=== PATIENT | male | born 1970 | race Caucasian/White ===

== ENCOUNTER 2016-05-03 13:18 | Emergency (ER) | payer SELFPAY ==
[2016-05-03 13:32] VITALS: BP 139/96; BMI 24.4
--- NOTE | 2016-05-03 14:06 | DR.GENAD ---
HPI - PCP Primary Care Physician: nfd - HPI Comment HPI Comment: SLIGHT CONGEST AND LOW GRADE FEVER. GETTING WORSE. SIDE PAIN GOES INTO ABDOMEN. NAUSEA PRESENT. - Complaint/Symptoms Chief Complaint Doctors Comments: SOD, RIGHT SIDE PAIN FOR SEVERA DAYS Chief Complaint:: patient stated he has been out of his inhaler for about 2 weeks and has been short of breath and right side pain - Nurses notes reviewed Nurses Notes Review: Yes - Source History Provided: Patient - Mode of Arrival Mode of Arrival: Ambulatory - Timing Onset of Chief Complaint: 04/19/16 Came on: Suddenly - Duration Duration: Constant Duration: Days - Severity Severity: Moderate PMH - PMH Past Medical History: Yes Past Medical History: Anxiety, Arthritis, Asthma, COPD, CVA, Depression, Dyslipidemia, Hypertension, Schizophrenia Past Surgical History: Yes Surgical History: Ortho Surgery - Family History History of Family Medical Conditions: Yes Family Medical History: Diabetes Mellitus, Cancer, Heart Failure, Hypertension - Social History Does patient currently use any type of tobacco product: Yes Have you used tobacco products in the last 12 months: Yes Type of Tobacco Use: Cigarettes How many years tobacco product used: 30 Does any household member use tobacco: No Alcohol Use: None Do you use any recreational Drugs:: No Lives With: Family Lives Where: Home - infectious screening In the last 2 months have you had wt loss of >10#?: NO Have you had fever, night sweats or hemotysis?: No Have you traveled outside the country in the last 6 months?: No Isolation: Standard ROS - Review of Systems Constitutional: Fever (LOW GRADE), Weakness Eyes: No Symptoms Reported ENTM: Nose Congestion. negative: Ear Pain, Nose Discharge, Throat Pain Respiratoy: Productive Cough. negative: Short of Breath, Wheezing, Hemoptysis Cardiovascular: No Symptoms Reported Gastrointestinal/Abdominal: Abdominal Pain, Nausea, Vomiting Genitourinary: No Symptoms Reported Neurological: Weakness Musculoskeletal: Muscle Pain Integumentary: No Symptoms Reported Hematologic/Lymphatic: No Symptoms Reported Endocrine: No Symptoms Reported All Other Systems: Reviewed and Negative PE - Vital Signs Vitals: Temperature 99.6 F Pulse Rate 97 Respiratory Rate 18 Blood Pressure 139/96 O2 Sat by Pulse Oximetry 100 - General Limitations: No Limitations General Appearance: Alert - Head Head Exam: Normal Inspection - Eyes Eye exam: Normal Appearance - ENT ENT Exam: Normal External Ear Exam External Ear Exam: Normal External Inspection TM/Canal Exam: Bilateral Normal Nose Exam: Normal Nose Exam Mouth Exam: Normal Inspection Throat Exam: Normal Inspection - Neck Neck Exam: Trachea Midline - Chest Chest Inspection: Symmetric Chest Wall Rise - Respiratory Respiratory Exam: Normal Lung Sounds Bilat Respiratory Exam: Bilateral Clear to Auscultation - Cardiovascular Cardiovascular Exam: Regular Rate, Normal Rhythm, Normal Heart Sounds - Abdominal Exam Abdominal Exam: Normal Bowel Sounds, Soft, Tenderness Abdominal Tenderness: Diffuse, Moderate - Extremities Extremities Exam: Normal Inspection - Back Back Exam: Normal Inspection - Neurologic Neurological Exam: Alert, Oriented X3 - Psychiatric Psychiatric Exam: Anxious - Skin Skin Exam: Normal Color MDM - Differential Diagnosis Differential Diagnosis: ABDOMINAL PAIN, PNEUMONIA, DEHYDRATION, UTI Course - Treatment Treatment: SEE REPORT. - Education/Counseling Education/Counseling: Patient, Education Educated On: Diagnosis, Needs for Follow Up ROR - Labs Reviewed Laboratory Results Reviewed?: Yes Result Diagrams: 05/03/16 14:10 05/03/16 14:10 Laboratory: WBC 9.2 X10^3/uL (3.6-10.0) 05/03/16 14:10 RBC 4.33 X10^6/uL (4.7-6.0) L 05/03/16 14:10 Hgb 12.8 g/dL (13.5-18.0) L 05/03/16 14:10 Hct 38.1 % (42.0-54.0) L 05/03/16 14:10 MCV 88.0 fL (80.0-100.0) 05/03/16 14:10 MCH 29.5 pg (27.0-34.0) 05/03/16 14:10 MCHC 33.6 g/dL (33.0-35.0) 05/03/16 14:10 RDW 16.5 % (11.6-16.5) 05/03/16 14:10 Plt Count 419 X10^3/uL (150.0-450.0) 05/03/16 14:10 MPV 6.9 fL (7.4-11.0) L 05/03/16 14:10 Neut % 70.7 % (42.0-75.0) 05/03/16 14:10 Lymph % 20.2 % (21.0-51.0) L 05/03/16 14:10 [place] % 6.8 % (0.0-13.0) 05/03/16 14:10 Eos % 1.2 % (0.9-2.9) 05/03/16 14:10 Baso % 1.1 % (0.2-1.0) H 05/03/16 14:10 Neut # 6.5 x10^3/uL (2.2-4.8) H 05/03/16 14:10 Lymph # 1.9 X10^3/uL (1.3-2.9) 05/03/16 14:10 [place] # 0.6 x10^3/uL (0.3-0.8) 05/03/16 14:10 Eos # 0.1 x10^3/uL (0.0-0.2) 05/03/16 14:10 Baso # 0.1 X10^3/uL (0.0-0.1) 05/03/16 14:10 Absolute Nucleated RBC 0.0 /100WBC 05/03/16 14:10 Sodium 138 mmol/L (136-145) 05/03/16 14:10 Corrected Sodium TNP 05/03/16 14:10 Potassium 3.5 mmol/L (3.5-5.1) 05/03/16 14:10 Chloride 100 mmol/L (98-107) 05/03/16 14:10 Carbon Dioxide 28.9 mmol/L (21-32) 05/03/16 14:10 BUN 12 mg/dL (7-18) 05/03/16 14:10 Creatinine 1.00 mg/dL (0.70-1.30) 05/03/16 14:10 Est GFR (MDRD) Af Amer > 60 (>60) 05/03/16 14:10 Est GFR (MDRD) Non-Af > 60 (>60) 05/03/16 14:10 Glucose 85 mg/dL (65-99) 05/03/16 14:10 Calcium 8.5 mg/dL (8.5-10.1) 05/03/16 14:10 Corrected Calcium TNP 05/03/16 14:10 Total Bilirubin 0.20 mg/dL (0.2-1.0) 05/03/16 14:10 AST 17 Units/L (15-37) 05/03/16 14:10 ALT 19 Units/L (12-78) 05/03/16 14:10 Alkaline Phosphatase 94 Units/L (46-116) 05/03/16 14:10 Total Protein 7.9 g/dL (6.4-8.2) 05/03/16 14:10 Albumin 4.1 g/dL (3.4-5.0) 05/03/16 14:10 Globulin 3.8 g/dL (2.5-4.5) 05/03/16 14:10 Albumin/Globulin Ratio 1.1 Ratio (1.1-2.1) 05/03/16 14:10 Amylase 43 Units/L (25-115) 05/03/16 14:10 Lipase 94 Units/L (73-393) 05/03/16 14:10 Specimen Type Clean catch urine 05/03/16 15:18 Urine Color Dark yellow (YELLOW) 05/03/16 15:18 Urine Appearance Clear (CLEAR) 05/03/16 15:18 Urine pH 6.5 (5.0 - 8.0) 05/03/16 15:18 Ur Specific [place] 1.015 (1.000-1.030) 05/03/16 15:18 Urine Protein 2+ (NEGATIVE) 05/03/16 15:18 Urine Glucose (UA) Negative (NEGATIVE) 05/03/16 15:18 Urine Ketones Negative (NEGATIVE) 05/03/16 15:18 Urine Occult Blood 2+ (NEGATIVE) 05/03/16 15:18 Urine Nitrite Negative (NEGATIVE) 05/03/16 15:18 Urine Bilirubin Negative (NEGATIVE) 05/03/16 15:18 Urine Urobilinogen 1+ (NORMAL) 05/03/16 15:18 Ur Leukocyte Esterase Negative (NEGATIVE) 05/03/16 15:18 Urine RBC 2-4 /HPF (NEGATIVE) 05/03/16 15:18 Urine WBC 0-4 /HPF (NEGATIVE) 05/03/16 15:18 Ur Squamous Epith Cells Rare /HPF (NEGATIVE) 05/03/16 15:18 Amorphous Sediment Trace /HPF (NEGATIVE) 05/03/16 15:18 Urine Bacteria Trace /HPF (NEGATIVE) 05/03/16 15:18 Ur Culture Indicated? No/not indicated 05/03/16 15:18 - XRAY XRAY Interpreted by: Radiologist XRAY Findings: REPORT DISCUSS WITH PATIENT. - Diagnosis Discharge Problem: Abdominal pain - Discharge Plan Disposition: 01 HOME, SELF-CARE Condition: Stable Prescriptions: Acetaminophen W/ Codeine [Tylenol/Codeine #3 300-30 mg] 1 tab PO Q6H PRN #15 tab PRN Reason: Pain Cyclobenzaprine HCl [FLEXERIL 10 MG *] 10 mg PO TID #15 tab Ibuprofen [MOTRIN TAB 600 MG *] 600 mg PO TID PRN #20 tab PRN Reason: Pain/Inflammation - Follow ups/Referrals Follow ups/Referrals: CARA SOLARES [STAFF PHYSICIAN] - 2 days NFD,None [Primary Care Provider] - 2 days - Instructions Instructions: Abdominal Pain, Adult, [id number] Additional Instructions: RETURN TO ED IF WORSE.
[2016-05-03 14:23] LABS: BASOPHILS # (AUTO) 0.1 X10^3/uL (0.0-0.1); BASOPHILS % (AUTO) 1.1 % (0.2-1.0); EOSINOPHILS # (AUTO) 0.1 x10^3/uL (0.0-0.2); EOSINOPHILS % (AUTO) 1.2 % (0.9-2.9); HEMATOCRIT 38.1 % (42.0-54.0); HEMOGLOBIN 12.8 g/dL (13.5-18.0); LYMPHOCYTES # (AUTO) 1.9 X10^3/uL (1.3-2.9); LYMPHOCYTES % (AUTO) 20.2 % (21.0-51.0); MEAN CORPUSCULAR HEMOGLOBIN 29.5 pg (27.0-34.0); MEAN CORPUSCULAR HGB CONC 33.6 g/dL (33.0-35.0); MEAN PLATELET VOLUME 6.9 fL (7.4-11.0); MONOCYTES # (AUTO) 0.6 x10^3/uL (0.3-0.8); MONOCYTES % (AUTO) 6.8 % (0.0-13.0); NEUTROPHILS # (AUTO) 6.5 x10^3/uL (2.2-4.8); NEUTROPHILS % (AUTO) 70.7 % (42.0-75.0); PLATELET COUNT 419 X10^3/uL (150.0-450.0); RED BLOOD COUNT 4.33 X10^6/uL (4.7-6.0); RED CELL DISTRIBUTION WIDTH 16.5 % (11.6-16.5); WHITE BLOOD COUNT 9.2 X10^3/uL (3.6-10.0)
[2016-05-03] MEDS ORDERED: TORADOL 60 MG VIAL ONE (14:23)
[2016-05-03] MEDS: TORADOL 60 MG VIAL IM ONE (14:30)
[2016-05-03 14:32] LABS: ALANINE AMINOTRANSFERASE 19 Units/L (12-78); ALBUMIN 4.1 g/dL (3.4-5.0); ALKALINE PHOSPHATASE 94 Units/L (46-116); AMYLASE 43 Units/L (25-115); ASPARTATE AMINO TRANSFERASE 17 Units/L (15-37); BLOOD UREA NITROGEN 12 mg/dL (7-18); CALCIUM 8.5 mg/dL (8.5-10.1); CARBON DIOXIDE 28.9 mmol/L (21-32); CHLORIDE 100 mmol/L (98-107); GLUCOSE 85 mg/dL (65-99); LIPASE 94 Units/L (73-393); SODIUM 138 mmol/L (136-145); TOTAL PROTEIN 7.9 g/dL (6.4-8.2); eGFR BLACK RACES > 60 (>60); eGFR NON BLACK RACES > 60 (>60)
--- NOTE | 2016-05-03 15:06 | RAD ---
HISTORY: Right upper quadrant pain Study: Acute abdominal series Comparison: December 09, 2015 Findings: The trachea is midline. The cardiac silhouette is unremarkable. The lungs are clear without focal infiltrate or effusion. The bony thorax is unremarkable. Flat plate and upright evaluation of the abdomen demonstrates a normal bowel gas pattern no pneumope ritoneum is identified.. No pathological soft tissue mass or calcification can be observed. The [place] structures are grossly intact. IMPRESSION: 1. No acute cardiopulmonary disease. 2. No evidence for acute abdominal pathology identified. Reported By:
[2016-05-03 15:47] LABS: BILIRUBIN,URINE NEGATIVE (NEGATIVE); BLOOD/HEMOGLOBIN,URINE 2+ (NEGATIVE); GLUCOSE, URINE NEGATIVE (NEGATIVE); KETONES,URINE NEGATIVE (NEGATIVE); LEUKOCYTE ESTERASE ,URINE NEGATIVE (NEGATIVE); NITRITES,URINE NEGATIVE (NEGATIVE); PH,URINE 6.5 (5.0 - 8.0); PROTEIN,URINE 2+ (NEGATIVE); UROBILINOGEN,URINE 1+ (NORMAL)
[2016-05-03 15:55] LABS: APPEARANCE,URINE CLEAR (CLEAR); COLOR,URINE DARK YELLOW (YELLOW); SQUAMOUS EPITHELIAL CELL,UR RARE /HPF (NEGATIVE)
[2016-05-03 15:56] LABS: AMORPHOUS SEDIMENT,UR TRACE /HPF (NEGATIVE); BACTERIA,URINE TRACE /HPF (NEGATIVE)
== END 2016-05-03 15:37 | disposition home or self-care (01) ==
LOC: ER 13:18
DX: R10.84 Generalized abdominal pain (principal)
CPT/HCPCS: 36415; 74022; 80053; 81001; 82150; 83690; 85025; 96372; 99283; J1885

== ENCOUNTER 2016-05-06 20:11 | Emergency (ER) | payer SELFPAY ==
[2016-05-06 20:18] VITALS: BP 160/99; BMI 23.0
--- NOTE | 2016-05-06 21:20 | DR.GENAD ---
HPI - PCP Primary Care Physician: DEMARIO - Complaint/Symptoms Chief Complaint:: PAIN IN RIGHT SIDE. Self Treatment fo Chief Complaint: PT TOOK A NORCO 10/325 AT LEAST 4 HOURS AGO. - Nurses notes reviewed Nurses Notes Review: Yes - Source History Provided: Patient - Mode of Arrival Mode of Arrival: Ambulatory - Timing Onset of Chief Complaint: 04/15/16 Came on: Gradually - Duration Duration: Constant How lon Duration: Days - Location Location: [facility] - Severity Severity: Moderate - Modifying Factors Worsens:: MOVEMENT - Associated Signs and Symptoms Associated Signs and Symptoms: NONE - Other History Other History: SEEN 2 DAYS AGO FOR SAME. bLOOD WORK AND XRAYS NORMAL. PMH - PMH Past Medical History: Yes Past Medical History: Anxiety, Arthritis, Asthma, COPD, CVA, Depression, Dyslipidemia, Hypertension, Schizophrenia Past Surgical History: Yes Surgical History: Ortho Surgery - Family History History of Family Medical Conditions: Yes Family Medical History: Diabetes Mellitus, Cancer, Heart Failure, Hypertension - Social History Does patient currently use any type of tobacco product: Yes Have you used tobacco products in the last 12 months: Yes Type of Tobacco Use: Cigarettes Does any household member use tobacco: No Alcohol Use: None Do you use any recreational Drugs:: No Lives With: Family Lives Where: Home - infectious screening In the last 2 months have you had wt loss of >10#?: NO Have you had fever, night sweats or hemotysis?: No Have you traveled outside the country in the last 6 months?: No Isolation: Standard ROS - Review of Systems Constitutional: No Symptoms Reported Eyes: No Symptoms Reported ENTM: No Symptoms Reported Respiratoy: No Symptoms Reported Cardiovascular: No Symptoms Reported Gastrointestinal/Abdominal: Abdominal Pain Genitourinary: No Symptoms Reported Neurological: No Symptoms Reported Musculoskeletal: No Symptoms Reported Integumentary: No Symptoms Reported Hematologic/Lymphatic: No Symptoms Reported Endocrine: No Symptoms Reported Psychiatric: Other (SCHIZOPHRENIA) PE - Vital Signs Vitals: Temperature 98 F Pulse Rate 69 Respiratory Rate 20 Blood Pressure 160/99 O2 Sat by Pulse Oximetry 98 - General Limitations: No Limitations General Appearance: Alert, In No Apparent Distress - Head Head Exam: Normal Inspection - Eyes Eye exam: EOMI. negative: Scleral Icterus, Conjunctival Injection - ENT ENT Exam: Normal Exam, Normal Oropharynx Mouth Exam: Normal Inspection - Neck Neck Exam: Normal Inspection, Full ROM, Trachea Midline - Respiratory Respiratory Exam: Normal Lung Sounds Bilat. negative: Accessory Muscle Use, Respiratory Distress Respiratory Exam: Bilateral Clear to Auscultation - Cardiovascular Cardiovascular Exam: Regular Rate - Abdominal Exam Abdominal Exam: Normal Inspection, Normal Bowel Sounds, Soft, Tenderness (RUQ). negative: Distention, Guarding, Rebound Abdominal Tenderness: RUQ - Extremities Extremities Exam: Normal Inspection, Full ROM - Back Back Exam: Normal Inspection - Neurologic Neurological Exam: Alert, Oriented X3, CN II-XII Intact - Psychiatric Psychiatric Exam: Anxious - Skin Skin Exam: Intact, Normal Color ROR - Labs Reviewed Result Diagrams: 05/06/16 21:55 05/06/16 21:55 Laboratory: WBC 8.6 X10^3/uL (3.6-10.0) 05/06/16 21:55 RBC 4.19 X10^6/uL (4.7-6.0) L 05/06/16 21:55 Hgb 12.4 g/dL (13.5-18.0) L 05/06/16 21:55 Hct 36.3 % (42.0-54.0) L 05/06/16 21:55 MCV 86.7 fL (80.0-100.0) 05/06/16 21:55 MCH 29.6 pg (27.0-34.0) 05/06/16 21:55 MCHC 34.2 g/dL (33.0-35.0) 05/06/16 21:55 RDW 16.0 % (11.6-16.5) 05/06/16 21:55 Plt Count 412 X10^3/uL (150.0-450.0) 05/06/16 21:55 MPV 6.6 fL (7.4-11.0) L 05/06/16 21:55 Neut % 62.8 % (42.0-75.0) 05/06/16 21:55 Lymph % 24.1 % (21.0-51.0) 05/06/16 21:55 [place] % 7.7 % (0.0-13.0) 05/06/16 21:55 Eos % 4.5 % (0.9-2.9) H 05/06/16 21:55 Baso % 0.9 % (0.2-1.0) 05/06/16 21:55 Neut # 5.4 x10^3/uL (2.2-4.8) H 05/06/16 21:55 Lymph # 2.1 X10^3/uL (1.3-2.9) 05/06/16 21:55 [place] # 0.7 x10^3/uL (0.3-0.8) 05/06/16 21:55 Eos # 0.4 x10^3/uL (0.0-0.2) H 05/06/16 21:55 Baso # 0.1 X10^3/uL (0.0-0.1) 05/06/16 21:55 Absolute Nucleated RBC 0.0 /100WBC 05/06/16 21:55 Sodium 139 mmol/L (136-145) 05/06/16 21:55 Corrected Sodium TNP 05/06/16 21:55 Potassium 3.7 mmol/L (3.5-5.1) 05/06/16 21:55 Chloride 103 mmol/L (98-107) 05/06/16 21:55 Carbon Dioxide 28.9 mmol/L (21-32) 05/06/16 21:55 BUN 14 mg/dL (7-18) 05/06/16 21:55 Creatinine 0.96 mg/dL (0.70-1.30) 05/06/16 21:55 Est GFR (MDRD) Af Amer > 60 (>60) 05/06/16 21:55 Est GFR (MDRD) Non-Af > 60 (>60) 05/06/16 21:55 Glucose 100 mg/dL (65-99) H 05/06/16 21:55 Calcium 8.5 mg/dL (8.5-10.1) 05/06/16 21:55 Corrected Calcium TNP 05/06/16 21:55 Total Bilirubin 0.10 mg/dL (0.2-1.0) L 05/06/16 21:55 AST 16 Units/L (15-37) 05/06/16 21:55 ALT 15 Units/L (12-78) 05/06/16 21:55 Alkaline Phosphatase 86 Units/L (46-116) 05/06/16 21:55 Total Protein 7.3 g/dL (6.4-8.2) 05/06/16 21:55 Albumin 3.7 g/dL (3.4-5.0) 05/06/16 21:55 Globulin 3.6 g/dL (2.5-4.5) 05/06/16 21:55 Albumin/Globulin Ratio 1.0 Ratio (1.1-2.1) L 05/06/16 21:55 Lipase 73 Units/L (73-393) 05/06/16 21:55 - XRAY XRAY Interpreted by: Radiologist XRAY Findings: aas:NORMAL - Diagnosis Discharge Problem: Abdominal pain Qualifiers: Abdominal location: right lower quadrant Qualified Code(s): R10.31 - Right lower quadrant pain - Discharge Plan Condition: Stable - Follow ups/Referrals Follow ups/Referrals: NFD,None [Primary Care Provider] - 3 days - Instructions
[2016-05-06] MEDS ORDERED: ULTRAM PO ONE (21:39)
[2016-05-06] MEDS ORDERED: ULTRAM ONE (21:40)
[2016-05-06 22:15] LABS: BASOPHILS # (AUTO) 0.1 X10^3/uL (0.0-0.1); BASOPHILS % (AUTO) 0.9 % (0.2-1.0); EOSINOPHILS # (AUTO) 0.4 x10^3/uL (0.0-0.2); EOSINOPHILS % (AUTO) 4.5 % (0.9-2.9); HEMATOCRIT 36.3 % (42.0-54.0); HEMOGLOBIN 12.4 g/dL (13.5-18.0); LYMPHOCYTES # (AUTO) 2.1 X10^3/uL (1.3-2.9); LYMPHOCYTES % (AUTO) 24.1 % (21.0-51.0); MEAN CORPUSCULAR HEMOGLOBIN 29.6 pg (27.0-34.0); MEAN CORPUSCULAR HGB CONC 34.2 g/dL (33.0-35.0); MEAN CORPUSCULAR VOLUME 86.7 fL (80.0-100.0); MEAN PLATELET VOLUME 6.6 fL (7.4-11.0); MONOCYTES # (AUTO) 0.7 x10^3/uL (0.3-0.8); MONOCYTES % (AUTO) 7.7 % (0.0-13.0); NEUTROPHILS # (AUTO) 5.4 x10^3/uL (2.2-4.8); NEUTROPHILS % (AUTO) 62.8 % (42.0-75.0); PLATELET COUNT 412 X10^3/uL (150.0-450.0); RED BLOOD COUNT 4.19 X10^6/uL (4.7-6.0); WHITE BLOOD COUNT 8.6 X10^3/uL (3.6-10.0)
--- NOTE | 2016-05-06 22:17 | RAD ---
HISTORY: Right upper quadrant pain Study: Acute abdominal series Comparison: May 03 Findings: The trachea is midline. The cardiac silhouette is unremarkable. The lungs are clear without focal infiltrate or effusion. The bony thorax is unremarkable. Flat plate and upright evaluation of the abdomen demonstrates a normal bowel gas pattern. No pathol ogical soft tissue mass or calcification can be observed. The bony structures are grossly intact. IMPRESSION: 1. No acute cardiopulmonary disease. 2. No evidence for acute abdominal pathology identified. Reported By:
[2016-05-06 22:27] LABS: ALANINE AMINOTRANSFERASE 15 Units/L (12-78); ALBUMIN 3.7 g/dL (3.4-5.0); ALKALINE PHOSPHATASE 86 Units/L (46-116); ASPARTATE AMINO TRANSFERASE 16 Units/L (15-37); BLOOD UREA NITROGEN 14 mg/dL (7-18); CALCIUM 8.5 mg/dL (8.5-10.1); CARBON DIOXIDE 28.9 mmol/L (21-32); CHLORIDE 103 mmol/L (98-107); CREATININE 0.96 mg/dL (0.70-1.30); GLUCOSE 100 mg/dL (65-99); LIPASE 73 Units/L (73-393); SODIUM 139 mmol/L (136-145); TOTAL PROTEIN 7.3 g/dL (6.4-8.2); eGFR BLACK RACES > 60 (>60); eGFR NON BLACK RACES > 60 (>60)
== END 2016-05-06 22:35 | disposition home or self-care (01) ==
LOC: ER 20:22
DX: R10.11 Right upper quadrant pain (principal)
CPT/HCPCS: 36415; 74022; 80053; 83690; 85025; 99283

== ENCOUNTER 2016-07-14 07:20 | Emergency (ER) | payer SELFPAY ==
[2016-07-14 07:24] VITALS: BP 154/96; BMI 23.7
[2016-07-14] MEDS ORDERED: TORADOL 60 MG VIAL IM ONE (08:14)
--- NOTE | 2016-07-14 08:15 | DR.GENAD ---
HPI - PCP Primary Care Physician: nfd - Complaint/Symptoms Chief Complaint Doctors Comments: Awaken this am with right ear pain. Denies fever, vomiting or trauma. Chief Complaint:: patient stated he woke up this morning with his right ear hurting. - Source History Provided: Patient - Mode of Arrival Mode of Arrival: Ambulatory - Timing Onset of Chief Complaint: 07/14/16 PMH - PMH Past Medical History: Yes Past Medical History: Anxiety, Arthritis, Asthma, COPD, CVA, Depression, Dyslipidemia, Hypertension, Schizophrenia Past Surgical History: Yes Surgical History: Ortho Surgery - Family History History of Family Medical Conditions: Yes Family Medical History: Diabetes Mellitus, Cancer, Heart Failure, Hypertension - Social History Does patient currently use any type of tobacco product: Yes Have you used tobacco products in the last 12 months: Yes Type of Tobacco Use: Cigarettes How many years tobacco product used: 25 Does any household member use tobacco: No Alcohol Use: None Do you use any recreational Drugs:: No Lives With: Family Lives Where: Home - infectious screening In the last 2 months have you had wt loss of >10#?: NO Have you had fever, night sweats or hemotysis?: No Have you traveled outside the country in the last 6 months?: No Isolation: Standard ROS - Review of Systems Eyes: No Symptoms Reported ENTM: Ear Pain Respiratoy: No Symptoms Reported Cardiovascular: No Symptoms Reported Gastrointestinal/Abdominal: No Symptoms Reported Genitourinary: No Symptoms Reported Neurological: No Symptoms Reported Musculoskeletal: No Symptoms Reported Integumentary: No Symptoms Reported Hematologic/Lymphatic: No Symptoms Reported Endocrine: No Symptoms Reported Psychiatric: No Symptoms Reported All Other Systems: Reviewed and Negative PE - Vital Signs Vitals: Temperature 98.6 F Pulse Rate 79 Respiratory Rate 18 Blood Pressure 154/96 O2 Sat by Pulse Oximetry 100 - General Limitations: No Limitations General Appearance: Alert, In No Apparent Distress - Head Head Exam: Normal Inspection, Atraumatic - Eyes Eye exam: Normal Appearance, PERRL, EOMI - ENT ENT Exam: Normal Exam, Normal Oropharynx External Ear Exam: Normal External Inspection TM/Canal Exam: Bilateral Erythema (decreased mobility) Nose Exam: Normal Nose Exam Mouth Exam: Normal Inspection Throat Exam: Normal Inspection - Neck Neck Exam: Normal Inspection, Full ROM - Chest Chest Inspection: Normal Inspection - Respiratory Respiratory Exam: Normal Lung Sounds Bilat Respiratory Exam: Bilateral Clear to Auscultation - Cardiovascular Cardiovascular Exam: Regular Rate, Normal Rhythm - Abdominal Exam Abdominal Exam: Normal Inspection, Normal Bowel Sounds Abdominal Tenderness: negative: RUQ, RLQ, LUQ, LLQ, Epigastrium, Suprapubic, Diffuse, Mild, Moderate, Severe, Other - Extremities Extremities Exam: Normal Inspection - Back Back Exam: Normal Inspection, Full ROM - Neurologic Neurological Exam: Alert, Oriented X3, CN II-XII Intact - Psychiatric Psychiatric Exam: Normal Affect, Normal Mood - Skin Skin Exam: Warm, Intact - Diagnosis Discharge Problem: Right otitis media Qualifiers: Otitis media type: suppurative Chronicity: acute Recurrence: not specified as recurrent Spontaneous tympanic membrane rupture: without spontaneous rupture Qualified Code(s): H66.001 - Acute suppurative otitis media without spontaneous rupture of ear drum, right ear - Discharge Plan Condition: Stable - Follow ups/Referrals Follow ups/Referrals: NFD,None [Primary Care Provider] - 3 days - Instructions
[2016-07-14] MEDS ORDERED: TORADOL 60 MG VIAL ONE (08:16)
== END 2016-07-14 08:28 | disposition home or self-care (01) ==
LOC: ER 07:20
DX: H66.001 Acute suppurative otitis media without spontaneous rupture of ear drum, right ear (principal)
CPT/HCPCS: 96372; 99281; 99282; J1885

== ENCOUNTER 2017-02-22 16:30 | Emergency (ER) | payer SELFPAY ==
[2017-02-22 16:36] VITALS: BMI 20.9
[2017-02-22] MEDS ORDERED: TORADOL 30 MG VIAL IVP ONE (16:47)
--- NOTE | 2017-02-22 16:48 | DR.GENAD ---
HPI - PCP Primary Care Physician: martine - Complaint/Symptoms Chief Complaint Doctors Comments: Patient presents with complaint of cough, congestion and weakness for three days associated with vomiting. He states that he has been taking Thera Flu. He did get flu shot this year. Chief Complaint:: patient stated he has felt bad for 4 days. he stays cold all the time,weak and has been coughing up stuff. - Source History Provided: Patient - Mode of Arrival Mode of Arrival: Ambulatory - Timing Onset of Chief Complaint: 02/18/17 PMH - PMH Past Medical History: Yes Past Medical History: Anxiety, Arthritis, Asthma, COPD, CVA, Depression, Dyslipidemia, Hypertension, Schizophrenia Past Surgical History: Yes Surgical History: Ortho Surgery - Family History History of Family Medical Conditions: Yes Family Medical History: Diabetes Mellitus, Cancer, Heart Failure, Hypertension - Social History Does patient currently use any type of tobacco product: No Have you used tobacco products in the last 12 months: No Type of Tobacco Use: None Does any household member use tobacco: No Alcohol Use: None Do you use any recreational Drugs:: No Lives With: Family Lives Where: Home - infectious screening In the last 2 months have you had wt loss of >10#?: NO Have you had fever, night sweats or hemotysis?: No Have you traveled outside the country in the last 6 months?: No Isolation: Standard ROS - Review of Systems Constitutional: Chills, Malaise, Irritable Eyes: No Symptoms Reported ENTM: No Symptoms Reported Respiratoy: No Symptoms Reported Cardiovascular: No Symptoms Reported Gastrointestinal/Abdominal: No Symptoms Reported Genitourinary: No Symptoms Reported Neurological: No Symptoms Reported Musculoskeletal: No Symptoms Reported Integumentary: No Symptoms Reported Hematologic/Lymphatic: No Symptoms Reported Endocrine: No Symptoms Reported Psychiatric: No Symptoms Reported PE - Vital Signs Vitals: Temperature 98.9 F Pulse Rate 90 Respiratory Rate 16 Blood Pressure 132/87 O2 Sat by Pulse Oximetry 96 - General Limitations: No Limitations General Appearance: Alert, In No Apparent Distress - Head Head Exam: Normal Inspection, Atraumatic - Eyes Eye exam: Normal Appearance, PERRL, EOMI - ENT ENT Exam: Normal Exam External Ear Exam: Normal External Inspection TM/Canal Exam: Bilateral Normal Nose Exam: Normal Nose Exam Mouth Exam: Normal Inspection Throat Exam: Normal Inspection - Neck Neck Exam: Normal Inspection, Full ROM - Chest Chest Inspection: Normal Inspection - Respiratory Respiratory Exam: Normal Lung Sounds Bilat Respiratory Exam: Bilateral Clear to Auscultation - Cardiovascular Cardiovascular Exam: Regular Rate, Normal Rhythm - Abdominal Exam Abdominal Exam: Normal Inspection, Normal Bowel Sounds Abdominal Tenderness: negative: RUQ, RLQ, LUQ, LLQ, Epigastrium, Suprapubic, Diffuse, Mild, Moderate, Severe, Other - Extremities Extremities Exam: Normal Inspection, Full ROM - Back Back Exam: Normal Inspection, Full ROM - Neurologic Neurological Exam: Alert, Oriented X3, CN II-XII Intact - Psychiatric Psychiatric Exam: Normal Affect - Skin Skin Exam: Warm, Dry, Intact Course - Education/Counseling Educated On: Treatment, Diagnosis, Prognosis ROR - Labs Reviewed Laboratory Results Reviewed?: Yes (Influenza A) Result Diagrams: 02/22/17 16:55 02/22/17 16:55 Laboratory: WBC 11.1 X10^3/uL (3.6-10.0) H 02/22/17 16:55 RBC 4.55 X10^6/uL (4.7-6.0) L 02/22/17 16:55 Hgb 13.7 g/dL (13.5-18.0) 02/22/17 16:55 Hct 40.1 % (42.0-54.0) L 02/22/17 16:55 MCV 88.3 fL (80.0-100.0) 02/22/17 16:55 MCH 30.0 pg (27.0-34.0) 02/22/17 16:55 MCHC 34.0 g/dL (33.0-35.0) 02/22/17 16:55 RDW 14.1 % (11.6-16.5) 02/22/17 16:55 Plt Count 353 X10^3/uL (150.0-450.0) 02/22/17 16:55 MPV 6.8 fL (7.4-11.0) L 02/22/17 16:55 Neut % 88.0 % (42.0-75.0) H 02/22/17 16:55 Lymph % 6.5 % (21.0-51.0) L 02/22/17 16:55 [place] % 5.0 % (0.0-13.0) 02/22/17 16:55 Eos % 0.1 % (0.9-2.9) L 02/22/17 16:55 Baso % 0.4 % (0.2-1.0) 02/22/17 16:55 Neut # 9.8 x10^3/uL (2.2-4.8) H 02/22/17 16:55 Lymph # 0.7 X10^3/uL (1.3-2.9) L 02/22/17 16:55 [place] # 0.6 x10^3/uL (0.3-0.8) 02/22/17 16:55 Eos # 0.0 x10^3/uL (0.0-0.2) 02/22/17 16:55 Baso # 0.0 X10^3/uL (0.0-0.1) 02/22/17 16:55 Absolute Nucleated RBC 0.1 /100WBC 02/22/17 16:55 Sodium 132 mmol/L (136-145) L 02/22/17 16:55 Corrected Sodium 132 mmol/L (136-145) L 02/22/17 16:55 Potassium 4.2 mmol/L (3.5-5.1) 02/22/17 16:55 Chloride 96 mmol/L (98-107) L 02/22/17 16:55 Carbon Dioxide 27.2 mmol/L (21-32) 02/22/17 16:55 BUN 17 mg/dL (7-18) 02/22/17 16:55 Creatinine 1.17 mg/dL (0.70-1.30) 02/22/17 16:55 Est GFR (MDRD) Af Amer > 60 (>60) 02/22/17 16:55 Est GFR (MDRD) Non-Af > 60 (>60) 02/22/17 16:55 Glucose 119 mg/dL (65-99) H 02/22/17 16:55 Calcium 8.3 mg/dL (8.5-10.1) L 02/22/17 16:55 Corrected Calcium 8.9 mg/dL (8.5-10.1) 02/22/17 16:55 Total Bilirubin 0.10 mg/dL (0.2-1.0) L 02/22/17 16:55 AST 21 Units/L (15-37) 02/22/17 16:55 ALT 16 Units/L (12-78) 02/22/17 16:55 Alkaline Phosphatase 69 Units/L (46-116) 02/22/17 16:55 Total Protein 7.4 g/dL (6.4-8.2) 02/22/17 16:55 Albumin 3.3 g/dL (3.4-5.0) L 02/22/17 16:55 Globulin 4.1 g/dL (2.5-4.5) 02/22/17 16:55 Albumin/Globulin Ratio 0.8 Ratio (1.1-2.1) L 02/22/17 16:55 Influenza Type A (PCR) Positive (NEGATIVE) A 02/22/17 17:33 Influenza Type B (PCR) Negative (NEGATIVE) 02/22/17 17:33 - XRAY XRAY Interpreted by: Radiologist (Chest: Findings c/w bronchitis; no acute pathology) - Diagnosis Discharge Problem: Influenza A - Discharge Plan Condition: Stable - Follow ups/Referrals Follow ups/Referrals: Wendi HANKS [Primary Care Provider] - 3 days - Instructions
[2017-02-22 17:08] LABS: BASOPHILS % (AUTO) 0.4 % (0.2-1.0); EOSINOPHILS % (AUTO) 0.1 % (0.9-2.9); HEMATOCRIT 40.1 % (42.0-54.0); HEMOGLOBIN 13.7 g/dL (13.5-18.0); LYMPHOCYTES # (AUTO) 0.7 X10^3/uL (1.3-2.9); LYMPHOCYTES % (AUTO) 6.5 % (21.0-51.0); MEAN CORPUSCULAR VOLUME 88.3 fL (80.0-100.0); MEAN PLATELET VOLUME 6.8 fL (7.4-11.0); MONOCYTES # (AUTO) 0.6 x10^3/uL (0.3-0.8); NEUTROPHILS # (AUTO) 9.8 x10^3/uL (2.2-4.8); PLATELET COUNT 353 X10^3/uL (150.0-450.0); RED BLOOD COUNT 4.55 X10^6/uL (4.7-6.0); RED CELL DISTRIBUTION WIDTH 14.1 % (11.6-16.5); WHITE BLOOD COUNT 11.1 X10^3/uL (3.6-10.0)
--- NOTE | 2017-02-22 17:11 | RAD ---
HISTORY: Fever, cough, cold and congestion Study: Single-view chest Comparison: 05/06/2014 Findings: The trachea is midline. The cardiac silhouette is unremarkable. There is no acute infiltrate, consoli dation, or pleural effusion. Mild central interstitial prominence and mild peribronchial thickening a re noted and can be seen in the setting of bronchitis. The bony structures are grossly intact. IMPRESSION: 1. Findings suggesting bronchitis. No acute infiltrate or pleural effusion evident. Reported By:
[2017-02-22 17:18] LABS: ALANINE AMINOTRANSFERASE 16 Units/L (12-78); ALBUMIN 3.3 g/dL (3.4-5.0); ALKALINE PHOSPHATASE 69 Units/L (46-116); ASPARTATE AMINO TRANSFERASE 21 Units/L (15-37); BLOOD UREA NITROGEN 17 mg/dL (7-18); CALCIUM 8.3 mg/dL (8.5-10.1); CARBON DIOXIDE 27.2 mmol/L (21-32); CHLORIDE 96 mmol/L (98-107); COR CA(FOR HYPOALB) 8.9 mg/dL (8.5-10.1); COR NA(FOR HYPERGLY) 132 mmol/L (136-145); CREATININE 1.17 mg/dL (0.70-1.30); SODIUM 132 mmol/L (136-145); TOTAL PROTEIN 7.4 g/dL (6.4-8.2); eGFR BLACK RACES > 60 (>60); eGFR NON BLACK RACES > 60 (>60)
[2017-02-22] MEDS ORDERED: TORADOL 30 MG VIAL ONE (17:27)
[2017-02-22] MEDS ORDERED: NS 1000 ML 1,000 ML IV ONE (18:00)
[2017-02-22] MEDS ORDERED: NS 1000 ML 1,000 ML ONE (18:02)
[2017-02-22 19:11] VITALS: BP 128/74
== END 2017-02-22 19:05 | disposition home or self-care (01) ==
LOC: ER 16:30
DX: J11.1 Influenza due to unidentified influenza virus with other respiratory manifestations (principal)
CPT/HCPCS: 36415; 71045; 80053; 85025; 87502; 96365; 96374; 99283; A4222; J1885

== ENCOUNTER 2017-06-21 05:28 | Emergency (ER) | payer SELFPAY ==
[2017-06-21 05:39] VITALS: BP 128/98; BMI 20.9
--- NOTE | 2017-06-21 05:45 | DR.GENAD ---
HPI - PCP Primary Care Physician: DEMARIO - HPI Comment HPI Comment: PATIENT DENIES CHEST OR ABD PAIN OR HEADACHE, LIKEWISE FEVER , DYSURIA. - Complaint/Symptoms Chief Complaint Doctors Comments: HERE FOR MEDICAL CLEARANCE FOR ALCOHOL AND DRUG REHAB. Chief Complaint:: MEDICAL CLEARANCE TO BE ADMITTED TO [facility] THIS AM. - Nurses notes reviewed Nurses Notes Review: Yes - Source History Provided: Patient - Mode of Arrival Mode of Arrival: Ambulatory - Timing Onset of Chief Complaint: 06/21/17 Came on: Suddenly - Duration Duration: Constant Duration: Hours - Severity Severity: Moderate PMH - PMH Past Medical History: Yes Past Medical History: Anxiety, Arthritis, Asthma, COPD, CVA, Depression, Dyslipidemia, Hypertension, Schizophrenia Past Surgical History: Yes Surgical History: Ortho Surgery - Family History History of Family Medical Conditions: Yes Family Medical History: Diabetes Mellitus, Cancer, Heart Failure, Hypertension - Social History Type of Tobacco Use: Cigarettes Alcohol Use: None Do you use any recreational Drugs:: Yes (THC,METHAMPHETMINES, COCAINE, ROXICODONE, OXYCODONE) Lives Where: Home - infectious screening In the last 2 months have you had wt loss of >10#?: NO Have you had fever, night sweats or hemotysis?: No Have you traveled outside the country in the last 6 months?: No Isolation: Standard ROS - Review of Systems Constitutional: No Symptoms Reported Eyes: No Symptoms Reported ENTM: No Symptoms Reported Respiratoy: No Symptoms Reported Cardiovascular: No Symptoms Reported Gastrointestinal/Abdominal: No Symptoms Reported Genitourinary: No Symptoms Reported Neurological: No Symptoms Reported Musculoskeletal: No Symptoms Reported Integumentary: No Symptoms Reported Hematologic/Lymphatic: No Symptoms Reported Endocrine: No Symptoms Reported All Other Systems: Reviewed and Negative PE - Vital Signs Vitals: Temperature 98.1 F Pulse Rate 98 Respiratory Rate 18 Blood Pressure [Left Arm] 128/74 Blood Pressure 128/98 O2 Sat by Pulse Oximetry 99 - General Limitations: No Limitations General Appearance: Alert - Head Head Exam: Normal Inspection - Eyes Eye exam: Normal Appearance - ENT ENT Exam: Normal External Ear Exam External Ear Exam: Normal External Inspection TM/Canal Exam: Bilateral Normal Nose Exam: Normal Nose Exam Mouth Exam: Normal Inspection Throat Exam: Normal Inspection - Neck Neck Exam: Trachea Midline - Chest Chest Inspection: Symmetric Chest Wall Rise - Respiratory Respiratory Exam: Normal Lung Sounds Bilat Respiratory Exam: Bilateral Clear to Auscultation - Cardiovascular Cardiovascular Exam: Regular Rate, Normal Rhythm, Normal Heart Sounds - Abdominal Exam Abdominal Exam: Normal Bowel Sounds, Soft. negative: Tenderness - Extremities Extremities Exam: Normal Inspection - Back Back Exam: Normal Inspection - Neurologic Neurological Exam: Alert, Oriented X3 - Psychiatric Psychiatric Exam: Normal Affect, Normal Mood - Skin Skin Exam: Normal Color MDM - Differential Diagnosis Differential Diagnosis: MEDICAL CLEARANACE, Course - Treatment Treatment: PATIENT IS MEDICALLY CLEAR. - Education/Counseling Education/Counseling: Patient, Education Educated On: Diagnosis ROR - Labs Reviewed Laboratory Results Reviewed?: Yes Result Diagrams: 06/21/17 05:50 06/21/17 05:50 Laboratory: WBC 10.3 X10^3/uL (3.6-10.0) H 06/21/17 05:50 RBC 4.28 X10^6/uL (4.7-6.0) L 06/21/17 05:50 Hgb 12.4 g/dL (13.5-18.0) L 06/21/17 05:50 Hct 36.9 % (42.0-54.0) L 06/21/17 05:50 MCV 86.1 fL (80.0-100.0) 06/21/17 05:50 MCH 28.9 pg (27.0-34.0) 06/21/17 05:50 MCHC 33.5 g/dL (33.0-35.0) 06/21/17 05:50 RDW 16.7 % (11.6-16.5) H 06/21/17 05:50 Plt Count 519 X10^3/uL (150.0-450.0) H 06/21/17 05:50 MPV 6.6 fL (7.4-11.0) L 06/21/17 05:50 Neut % (Auto) 72.0 % (42.0-75.0) 06/21/17 05:50 Lymph % (Auto) 17.8 % (21.0-51.0) L 06/21/17 05:50 [place] % (Auto) 7.0 % (0.0-13.0) 06/21/17 05:50 Eos % (Auto) 2.4 % (0.9-2.9) 06/21/17 05:50 Baso % (Auto) 0.8 % (0.2-1.0) 06/21/17 05:50 Neut # (Auto) 7.4 x10^3/uL (2.2-4.8) H 06/21/17 05:50 Lymph # (Auto) 1.8 X10^3/uL (1.3-2.9) 06/21/17 05:50 [place] # (Auto) 0.7 x10^3/uL (0.3-0.8) 06/21/17 05:50 Eos # (Auto) 0.2 x10^3/uL (0.0-0.2) 06/21/17 05:50 Baso # (Auto) 0.1 X10^3/uL (0.0-0.1) 06/21/17 05:50 Absolute Nucleated RBC 0.0 /100WBC 06/21/17 05:50 Sodium 139 mmol/L (136-145) 06/21/17 05:50 Corrected Sodium 140 mmol/L (136-145) 06/21/17 05:50 Potassium 3.6 mmol/L (3.5-5.1) 06/21/17 05:50 Chloride 102 mmol/L (98-107) 06/21/17 05:50 Carbon Dioxide 30.0 mmol/L (21-32) 06/21/17 05:50 BUN 16 mg/dL (7-18) 06/21/17 05:50 Creatinine 1.13 mg/dL (0.70-1.30) 06/21/17 05:50 Est GFR (MDRD) Af Amer > 60 (>60) 06/21/17 05:50 Est GFR (MDRD) Non-Af > 60 (>60) 06/21/17 05:50 Glucose 123 mg/dL (65-99) H 06/21/17 05:50 Calcium 7.9 mg/dL (8.5-10.1) L 06/21/17 05:50 Corrected Calcium 8.5 mg/dL (8.5-10.1) 06/21/17 05:50 Total Bilirubin 0.10 mg/dL (0.2-1.0) L 06/21/17 05:50 AST 6 Units/L (15-37) L 06/21/17 05:50 ALT 10 Units/L (12-78) L 06/21/17 05:50 Alkaline Phosphatase 88 Units/L (46-116) 06/21/17 05:50 Total Protein 7.9 g/dL (6.4-8.2) 06/21/17 05:50 Albumin 3.2 g/dL (3.4-5.0) L 06/21/17 05:50 Globulin 4.7 g/dL (2.5-4.5) H 06/21/17 05:50 Albumin/Globulin Ratio 0.7 Ratio (1.1-2.1) L 06/21/17 05:50 Specimen Type Clean catch urine 06/21/17 05:44 Urine Color Yellow (YELLOW) 06/21/17 05:44 Urine Appearance Clear (CLEAR) 06/21/17 05:44 Urine pH 6.0 (5.0 - 8.0) 06/21/17 05:44 Ur Specific [place] 1.020 (1.000-1.030) 06/21/17 05:44 Urine Protein 2+ (NEGATIVE) 06/21/17 05:44 Urine Glucose (UA) Negative (NEGATIVE) 06/21/17 05:44 Urine Ketones Negative (NEGATIVE) 06/21/17 05:44 Urine Occult Blood 2+ (NEGATIVE) 06/21/17 05:44 Urine Nitrite Negative (NEGATIVE) 06/21/17 05:44 Urine Bilirubin Negative (NEGATIVE) 06/21/17 05:44 Urine Urobilinogen 1+ (NORMAL) 06/21/17 05:44 Ur Leukocyte Esterase Negative (NEGATIVE) 06/21/17 05:44 Urine RBC 3-5 /HPF (NONE SEEN) 06/21/17 05:44 Urine WBC None seen /HPF (NONE SEEN) 06/21/17 05:44 Ur Squamous Epith Cells Rare /HPF (NEGATIVE) 06/21/17 05:44 Calcium Oxalate Crystal Few /HPF (NEGATIVE) 06/21/17 05:44 Urine Bacteria Trace /HPF (NEGATIVE) 06/21/17 05:44 Ur Culture Indicated? No/not indicated 06/21/17 05:44 Salicylates 2.9 mg/dL (2.8-20) 06/21/17 05:50 Urine Opiates Screen Negative (NEG=<300) 06/21/17 05:44 Urine Methadone Screen Negative (NEG=<300) 06/21/17 05:44 Acetaminophen 0.0 ug/mL (10-30) L 06/21/17 05:50 Ur Barbiturates Screen Negative (NEG=<200) 06/21/17 05:44 Ur Phencyclidine Scrn Negative (NEG=<25) 06/21/17 05:44 Ur Amphetamines Screen Positive (NEG=<1000) 06/21/17 05:44 U Benzodiazepines Scrn Negative (NEG=<200) 06/21/17 05:44 Urine Cocaine Screen Negative (NEG=<300) 06/21/17 05:44 U Marijuana (THC) Screen Positive (NEG=<50) A 06/21/17 05:44 Ethyl Alcohol mg/dL < 3 mg/dL (0-19.9) 06/21/17 05:50 - EKG Rhythm: NSR (EKG NOTED.) - Diagnosis Discharge Problem: Medical clearance for psychiatric admission - Discharge Plan Condition: Stable - Follow ups/Referrals Follow ups/Referrals: NFD,None [Primary Care Provider] - 3 days - Instructions Instructions: Medical Screening Exam Additional Instructions: RETURN TO ED IF WORSE.
[2017-06-21 06:03] LABS: BASOPHILS # (AUTO) 0.1 X10^3/uL (0.0-0.1); BASOPHILS % (AUTO) 0.8 % (0.2-1.0); EOSINOPHILS # (AUTO) 0.2 x10^3/uL (0.0-0.2); EOSINOPHILS % (AUTO) 2.4 % (0.9-2.9); HEMATOCRIT 36.9 % (42.0-54.0); HEMOGLOBIN 12.4 g/dL (13.5-18.0); LYMPHOCYTES # (AUTO) 1.8 X10^3/uL (1.3-2.9); LYMPHOCYTES % (AUTO) 17.8 % (21.0-51.0); MEAN CORPUSCULAR HEMOGLOBIN 28.9 pg (27.0-34.0); MEAN CORPUSCULAR HGB CONC 33.5 g/dL (33.0-35.0); MEAN CORPUSCULAR VOLUME 86.1 fL (80.0-100.0); MEAN PLATELET VOLUME 6.6 fL (7.4-11.0); MONOCYTES # (AUTO) 0.7 x10^3/uL (0.3-0.8); NEUTROPHILS # (AUTO) 7.4 x10^3/uL (2.2-4.8); PLATELET COUNT 519 X10^3/uL (150.0-450.0); RED BLOOD COUNT 4.28 X10^6/uL (4.7-6.0); RED CELL DISTRIBUTION WIDTH 16.7 % (11.6-16.5); WHITE BLOOD COUNT 10.3 X10^3/uL (3.6-10.0)
[2017-06-21 06:04] LABS: BILIRUBIN,URINE NEGATIVE (NEGATIVE); BLOOD/HEMOGLOBIN,URINE 2+ (NEGATIVE); GLUCOSE, URINE NEGATIVE (NEGATIVE); KETONES,URINE NEGATIVE (NEGATIVE); LEUKOCYTE ESTERASE ,URINE NEGATIVE (NEGATIVE); NITRITES,URINE NEGATIVE (NEGATIVE); PROTEIN,URINE 2+ (NEGATIVE); UROBILINOGEN,URINE 1+ (NORMAL)
[2017-06-21 06:11] LABS: ALANINE AMINOTRANSFERASE 10 Units/L (12-78); ALBUMIN 3.2 g/dL (3.4-5.0); ALKALINE PHOSPHATASE 88 Units/L (46-116); ASPARTATE AMINO TRANSFERASE 6 Units/L (15-37); BLOOD UREA NITROGEN 16 mg/dL (7-18); CALCIUM 7.9 mg/dL (8.5-10.1); CHLORIDE 102 mmol/L (98-107); COR CA(FOR HYPOALB) 8.5 mg/dL (8.5-10.1); COR NA(FOR HYPERGLY) 140 mmol/L (136-145); CREATININE 1.13 mg/dL (0.70-1.30); SODIUM 139 mmol/L (136-145); TOTAL PROTEIN 7.9 g/dL (6.4-8.2); eGFR BLACK RACES > 60 (>60); eGFR NON BLACK RACES > 60 (>60)
[2017-06-21 06:12] LABS: BLOOD ALCOHOL < 3 mg/dL (0-19.9)
[2017-06-21 06:13] LABS: APPEARANCE,URINE CLEAR (CLEAR); BACTERIA,URINE TRACE /HPF (NEGATIVE); CALCIUM OXALATE CRYSTALS,UR FEW /HPF (NEGATIVE); COLOR,URINE YELLOW (YELLOW); SQUAMOUS EPITHELIAL CELL,UR RARE /HPF (NEGATIVE)
[2017-06-21 06:21] LABS: SALICYLATE 2.9 mg/dL (2.8-20)
== END 2017-06-21 06:43 | disposition home or self-care (01) ==
LOC: ER 05:28
DX: Z00.01 Encounter for general adult medical examination with abnormal findings (principal); R94.31 Abnormal electrocardiogram [ECG] [EKG]
CPT/HCPCS: 36415; 80053; 80307; 81001; 85025; 93005; 93010; 99282; 99285; G0434; G6038; G6039; G6040

== ENCOUNTER 2019-05-21 19:19 | Inpatient (IN) ==
--- NOTE | 2019-05-21 19:46 | DR.GENAD ---
HPI - PCP Primary Care Physician: KARAN - HPI Comment HPI Comment: patient wanting to get off Amphetamines. History of same in past and rehab x 2. Also Hx of COPD, anxiety, HTN, schizo. - Complaint/Symptoms Chief Complaint:: PATIENT STATES HE HAS BEEN SHORT OF BREATH SINCE DOING METH YESTERDAY AFTERNOON. PATIENT STATES HE WOULD LIKE TO GO [facility] BECAUSE HE WANTS TO CHANGE HIS LIFE. - COVID-19 Coronavirus risk:travel/contact w/high risk person: No Has patient experienced Coronavirus symptoms: No Coronavirus symptoms experienced: Coughing - Nurses notes reviewed Nurses Notes Review: Yes - Source History Provided: Patient - Mode of Arrival Mode of Arrival: Ambulatory - Timing Onset of Chief Complaint: 05/21/19 Came on: Gradually - Duration Duration: Intermittent Duration: Days - Location Location: generalized - Severity Severity: Moderate - Modifying Factors Worsens:: drugs - Associated Signs and Symptoms Associated Signs and Symptoms: cough PMH - PMH Past Medical History: Yes Past Medical History: Hypertension Past Surgical History: No Surgical History: Ortho Surgery - Family History History of Family Medical Conditions: No Family Medical History: Diabetes Mellitus, Heart Failure, Hypertension - Social History Have you used tobacco products in the last 12 months: Yes Type of Tobacco Use: Cigarettes Alcohol Use: DAILY Do you use any recreational Drugs:: Yes Lives With: Alone Lives Where: Home - Travel Risk Coronavirus risk:travel/contact w/high risk person: No Has patient experienced Coronavirus symptoms: No - infectious screening In the last 2 months have you had wt loss of >10#?: NO Have you had fever, night sweats or hemotysis?: No Have you traveled outside the country in the last 6 months?: No Isolation: Standard ROS - Review of Systems Constitutional: No Symptoms Reported Eyes: No Symptoms Reported ENTM: No Symptoms Reported Respiratoy: Productive Cough Cardiovascular: No Symptoms Reported Gastrointestinal/Abdominal: No Symptoms Reported Genitourinary: No Symptoms Reported Neurological: No Symptoms Reported Musculoskeletal: No Symptoms Reported Integumentary: No Symptoms Reported Hematologic/Lymphatic: No Symptoms Reported Endocrine: No Symptoms Reported Psychiatric: No Symptoms Reported All Other Systems: Reviewed and Negative PE - General Limitations: No Limitations General Appearance: Alert, In No Apparent Distress - Head Head Exam: Normal Inspection, Atraumatic - Eyes Eye exam: Normal Appearance, EOMI - ENT ENT Exam: Mucous Membranes Dry External Ear Exam: Normal External Inspection Mouth Exam: Normal Inspection Throat Exam: Normal Inspection - Neck Neck Exam: Normal Inspection, Full ROM, Trachea Midline - Chest Chest Inspection: Normal Inspection - Respiratory Respiratory Exam: Normal Lung Sounds Bilat Respiratory Exam: Bilateral Clear to Auscultation - Cardiovascular Cardiovascular Exam: Regular Rate - Abdominal Exam Abdominal Exam: Normal Inspection, Normal Bowel Sounds, Soft. negative: Distention, Tenderness, Guarding - Extremities Extremities Exam: Normal Inspection, Full ROM - Back Back Exam: Normal Inspection, Full ROM - Neurologic Neurological Exam: Alert, Oriented X3, CN II-XII Intact - Psychiatric Psychiatric Exam: Normal Affect - Skin Skin Exam: Dry, Normal Color - Vital Signs Vitals: Temperature 98.9 F Pulse Rate 90 Respiratory Rate 20 Blood Pressure [Right Arm] 158/99 Blood Pressure [Left Arm] 149/95 Blood Pressure 119/70 O2 Sat by Pulse Oximetry 95 Course - Treatment Treatment: 2144: case discussed with DR. Baptiste observation for COPD exacerbation then mental health evaluation for AmPHETAMINE abuse. ROR - Labs Reviewed Result Diagrams: 05/21/19 19:56 05/21/19 19:56 - XRAY XRAY Interpreted by: Self - Labs Reviewed Laboratory: WBC 18.2 X10^3/uL (3.6-10.0) H 05/21/19 19:56 RBC 4.51 X10^6/uL (4.7-6.0) L 05/21/19 19:56 Hgb 13.3 g/dL (13.5-18.0) L 05/21/19 19:56 Hct 38.9 % (42.0-54.0) L 05/21/19 19:56 MCV 86.2 fL (80.0-100.0) 05/21/19 19:56 MCH 29.5 pg (27.0-34.0) 05/21/19 19:56 MCHC 34.2 g/dL (33.0-35.0) 05/21/19 19:56 RDW 17.9 % (11.6-16.5) H 05/21/19 19:56 Plt Count 416 X10^3/uL (150.0-450.0) 05/21/19 19:56 MPV 6.6 fL (7.4-11.0) L 05/21/19 19:56 Neut % (Auto) 88.9 % (42.0-75.0) H 05/21/19 19:56 Lymph % (Auto) 6.0 % (21.0-51.0) L 05/21/19 19:56 Ross % (Auto) 4.4 % (0.0-13.0) 05/21/19 19:56 Eos % (Auto) 0.4 % (0.9-2.9) L 05/21/19 19:56 Baso % (Auto) 0.3 % (0.2-1.0) 05/21/19 19:56 Neut # (Auto) 16.2 x10^3/uL (2.2-4.8) H 05/21/19 19:56 Lymph # (Auto) 1.1 X10^3/uL (1.3-2.9) L 05/21/19 19:56 Ross # (Auto) 0.8 x10^3/uL (0.3-0.8) 05/21/19 19:56 Eos # (Auto) 0.1 x10^3/uL (0.0-0.2) 05/21/19 19:56 Baso # (Auto) 0.1 X10^3/uL (0.0-0.1) 05/21/19 19:56 Absolute Nucleated RBC 0.0 /100WBC 05/21/19 19:56 Sodium 135 mmol/L (136-145) L 05/21/19 19:56 Corrected Sodium 135 mmol/L (136-145) L 05/21/19 19:56 Potassium 3.8 mmol/L (3.5-5.1) 05/21/19 19:56 Chloride 98 mmol/L (98-107) 05/21/19 19:56 Carbon Dioxide 26.6 mmol/L (21-32) 05/21/19 19:56 BUN 18 mg/dL (7-18) 05/21/19 19:56 Creatinine 1.11 mg/dL (0.70-1.30) 05/21/19 19:56 Est GFR (MDRD) Af Amer > 60 (>60) 05/21/19 19:56 Est GFR (MDRD) Non-Af > 60 (>60) 05/21/19 19:56 Glucose 114 mg/dL (65-99) H 05/21/19 19:56 Calcium 8.6 mg/dL (8.5-10.1) 05/21/19 19:56 Corrected Calcium TNP 05/21/19 19:56 Total Bilirubin 0.30 mg/dL (0.2-1.0) 05/21/19 19:56 AST 15 Units/L (15-37) 05/21/19 19:56 ALT 12 Units/L (12-78) 05/21/19 19:56 Alkaline Phosphatase 71 Units/L (46-116) 05/21/19 19:56 Total Protein 7.9 g/dL (6.4-8.2) 05/21/19 19:56 Albumin 3.7 g/dL (3.4-5.0) 05/21/19 19:56 Globulin 4.2 g/dL (2.5-4.5) 05/21/19 19:56 Albumin/Globulin Ratio 0.9 Ratio (1.1-2.1) L 05/21/19 19:56 Salicylates 2.9 mg/dL (2.8-20) 05/21/19 19:56 Urine Opiates Screen Negative (NEG=<300) 05/21/19 20:40 Urine Methadone Screen Negative (NEG=<300) 05/21/19 20:40 Acetaminophen 0.0 ug/mL (10-30) L 05/21/19 19:56 Ur Barbiturates Screen Negative (NEG=<200) 05/21/19 20:40 Ur Phencyclidine Scrn Negative (NEG=<25) 05/21/19 20:40 Ur Amphetamines Screen Positive (NEG=<1000) 05/21/19 20:40 U Benzodiazepines Scrn Negative (NEG=<200) 05/21/19 20:40 Urine Cocaine Screen Negative (NEG=<300) 05/21/19 20:40 U Marijuana (THC) Screen Positive (NEG=<50) A 05/21/19 20:40 Ethyl Alcohol mg/dL < 3 mg/dL (0-19.9) 05/21/19 19:56 - XRAY Xray Findings: CHEST: COPD chronic changes (YOEL MARKS) Opioid - Opioid Risk Tool Age (Yoel box if 16-45): No History of Preadolescent Sexual Abuse: No Total: 0 Total Score Risk Category: Low Risk - Diagnosis Discharge Problem: COPD exacerbation, Amphetamine abuse - Discharge Plan Condition: Stable
[2019-05-21 20:14] LABS: BASOPHILS # (AUTO) 0.1 X10^3/uL (0.0-0.1); BASOPHILS % (AUTO) 0.3 % (0.2-1.0); EOSINOPHILS # (AUTO) 0.1 x10^3/uL (0.0-0.2); EOSINOPHILS % (AUTO) 0.4 % (0.9-2.9); HEMATOCRIT 38.9 % (42.0-54.0); HEMOGLOBIN 13.3 g/dL (13.5-18.0); LYMPHOCYTES # (AUTO) 1.1 X10^3/uL (1.3-2.9); MEAN CORPUSCULAR HEMOGLOBIN 29.5 pg (27.0-34.0); MEAN CORPUSCULAR HGB CONC 34.2 g/dL (33.0-35.0); MEAN CORPUSCULAR VOLUME 86.2 fL (80.0-100.0); MEAN PLATELET VOLUME 6.6 fL (7.4-11.0); MONOCYTES # (AUTO) 0.8 x10^3/uL (0.3-0.8); MONOCYTES % (AUTO) 4.4 % (0.0-13.0); NEUTROPHILS # (AUTO) 16.2 x10^3/uL (2.2-4.8); NEUTROPHILS % (AUTO) 88.9 % (42.0-75.0); PLATELET COUNT 416 X10^3/uL (150.0-450.0); RED BLOOD COUNT 4.51 X10^6/uL (4.7-6.0); RED CELL DISTRIBUTION WIDTH 17.9 % (11.6-16.5); WHITE BLOOD COUNT 18.2 X10^3/uL (3.6-10.0)
[2019-05-21 20:25] LABS: ALANINE AMINOTRANSFERASE 12 Units/L (12-78); ALBUMIN 3.7 g/dL (3.4-5.0); ALKALINE PHOSPHATASE 71 Units/L (46-116); ASPARTATE AMINO TRANSFERASE 15 Units/L (15-37); BLOOD ALCOHOL < 3 mg/dL (0-19.9); BLOOD UREA NITROGEN 18 mg/dL (7-18); CALCIUM 8.6 mg/dL (8.5-10.1); CARBON DIOXIDE 26.6 mmol/L (21-32); CHLORIDE 98 mmol/L (98-107); COR NA(FOR HYPERGLY) 135 mmol/L (136-145); CREATININE 1.11 mg/dL (0.70-1.30); SODIUM 135 mmol/L (136-145); TOTAL PROTEIN 7.9 g/dL (6.4-8.2); eGFR NON BLACK RACES > 60 (>60)
[2019-05-21 20:29] LABS: SALICYLATE 2.9 mg/dL (2.8-20)
[2019-05-21] MEDS ORDERED: DUONEB 0.5 MG/3 MG (3 mL) NEB ONE ×3 (21:21→21:30)
--- NOTE | 2019-05-21 21:50 | RAD ---
HISTORY:Short of breathStudy: Single view chestComparison:03/01/2019Findings:Lungs are hyperinflated with coarsened interstitial markings suggesting underlying COPD. No infiltrate, effusion, or pneumothorax identified .Cardiac and mediastinal contours are within normal limits .The soft tissues are intact .IMPRESSION:1. No acute cardiopulmonary abnormality.Electronically signed by: CORBIN TREVIZO (May 21, 2019 21:48:19)
[2019-05-21] MEDS ORDERED: ZOFRAN INJ 4 MG VIAL IVP PRN (21:55)
[2019-05-21] MEDS ORDERED: NS 500 ML IV 500 ML IV ONE (21:55)
[2019-05-21] MEDS ORDERED: NS 1000 ML 1,000 ML ONE (22:29)
[2019-05-21 23:25] VITALS: BMI 18.6
[2019-05-21] MEDS ORDERED: AFLURIA II4 or FLUARIX II4 IM ONE ×2 (23:25→23:35)
[2019-05-21] MEDS ORDERED: PREVNAR 13 IM ONE ×2 (23:25→23:35)
[2019-05-21] MEDS ORDERED: NICOTINE PATCH TD ONE (23:35)
[2019-05-21] MEDS: NICOTINE PATCH TD SCH (23:50)
[2019-05-22] MEDS: DUONEB 0.5 MG/3 MG (3 mL) NEB SCH ×2 (00:22→05:42)
[2019-05-22] MEDS: ATIVAN INJ 2 MG VIAL IVP SCH ×2 (04:02→10:37)
[2019-05-22 09:11] LABS: ABG BASE EXCESS 4.6 mmol/L (-2.0-2.0); ABG HCO3 28.3 mmol/L (22-26)
[2019-05-22] MEDS: NICOTINE PATCH TD SCH (10:00)
[2019-05-22] MEDS ORDERED: NS 500 ML IV 500 ML IV ONE (10:38)
[2019-05-22] MEDS: ZITHROMAX INJ 500 MG VIAL 500 MG in NS 250 ML IV 250 ML IV SCH (10:45)
[2019-05-22 10:59] LABS: MYCOPLASMA PNEUMONIAE IGM AB NEGATIVE (NEGATIVE)
[2019-05-22 11:17] LABS: RSV AG DETECTION NEGATIVE (NEGATIVE)
--- NOTE | 2019-05-22 12:41 | DR.H&P ---
H&P - History & Physical for Day of: H&P Date: 05/21/19 - Chief Complaint Chief Complaint: SOB - History of Present Illness History of Present Illness: PT IS 48 WM ER ADMISSION AFTER PRESENTING WITH CO SOB. PT ADMITS TO SMOKING METHAMPHETAMINE. PT HAD PMH OF HTN AND COPD. PT CO COUGH AND SOB, DENIES ANY N/V/D/C. PT DENIES ANY SUICIDAL OR HOMOCIDAL IDEATIONS. PT ADMITTED FOR TREATMENT OF COPD EXACERBATION, EVALUATION OF SOB AND REFER TO REHABILATION THERAPY FOR DRUG ABUSE. - Past Medical History Past Medical History: Hypertension - Past Surgical History Surgical History: Ortho Surgery - Family History Family Medical History: Diabetes Mellitus, Heart Failure, Hypertension - Social History Does patient currently use any type of tobacco product: Yes Have you used tobacco products in the last 12 months: Yes Type of Tobacco Use: Cigarettes Alcohol Use: None Drug Use: Methamphetamine, Marijuana - Medications Home Medications: No Known Drug Allergies Allergy (Verified 05/21/19 23:30) CONTINUE taking the following medications NK 05/21/19 [History] - Review of Systems Constitutional: Chills Eyes: No Symptoms Reported ENT: Throat Pain Respiratory: Cough, Shortness of Breath, Wheezing Cardiovascular: denies: Chest Pain Gastrointestinal: denies: Nausea, Vomiting, Abdominal Pain, Constipation Genitourinary: No Symptoms Reported Musculoskeletal: No Symptoms Reported Skin: No Symptoms Reported Neurological: No Symptoms Reported - Physical Exam Vital Signs: Temperature 100.8 F Pulse Rate [Left Brachial] 108 Pulse Rate 86 Respiratory Rate 18 Blood Pressure [Right Arm] 125/76 Blood Pressure [Left Arm] 149/95 Blood Pressure 119/70 O2 Sat by Pulse Oximetry 94 Oriented: Normal Eyes: Normal, Diplopia Nose: Normal Throat: Dry Respiratory: Wheezes Throughout, RLL Diminished, LLL Diminished Cardiovascular: Normal. negative: Edema : Normal Auscultation: Bowel Sounds: Normal Palpation: Normal Tenderness: Normal Skin: Decreased Turgur Musculoskeletal: Normal Psychiatric: Normal Mood Description: Calm Speech Pattern: Clear, Appropriate - Assessment/Plan (1) Shortness of breath Status: Acute Plan: ADMIT, CXR ON ADMISSION. AM LABS, BLOOD AND SPUTUM CULTURE. ABG, SUPPLEMENTAL O2. GENTLE IV HYDRATION, REGULAR DIET, ENCOURAGE ORAL HYDRATION DUO NEBS ON ADMISSION, IV ATBX THERAPY. CASE MANAGEMENT CONSULT FOR MENTAL HEALTH REFERRAL ON DISCHARGE (2) COPD exacerbation Status: Acute (3) Methamphetamine abuse Status: Acute - Allergies Allergies/Adverse Reactions: Allergies Allergy/AdvReac Type Severity Reaction Status Date / Time No Known Drug Allergies Allergy Verified 05/21/19 23:30
[2019-05-22] MEDS: LOVENOX INJ 40 MG SYR SC SCH (12:44)
[2019-05-23 05:54] LABS: BASOPHILS # (AUTO) 0.2 X10^3/uL (0.0-0.1); BASOPHILS % (AUTO) 1.1 % (0.2-1.0); EOSINOPHILS # (AUTO) 0.4 x10^3/uL (0.0-0.2); EOSINOPHILS % (AUTO) 2.4 % (0.9-2.9); HEMATOCRIT 37.5 % (42.0-54.0); HEMOGLOBIN 12.4 g/dL (13.5-18.0); LYMPHOCYTES # (AUTO) 1.8 X10^3/uL (1.3-2.9); LYMPHOCYTES % (AUTO) 12.3 % (21.0-51.0); MEAN CORPUSCULAR HEMOGLOBIN 29.6 pg (27.0-34.0); MEAN CORPUSCULAR HGB CONC 33.1 g/dL (33.0-35.0); MEAN CORPUSCULAR VOLUME 89.4 fL (80.0-100.0); MONOCYTES # (AUTO) 0.8 x10^3/uL (0.3-0.8); MONOCYTES % (AUTO) 5.2 % (0.0-13.0); NEUTROPHILS # (AUTO) 11.7 x10^3/uL (2.2-4.8); PLATELET COUNT 358 X10^3/uL (150.0-450.0); RED CELL DISTRIBUTION WIDTH 17.7 % (11.6-16.5); WHITE BLOOD COUNT 14.9 X10^3/uL (3.6-10.0)
[2019-05-23 06:03] LABS: ALANINE AMINOTRANSFERASE 15 Units/L (12-78); ALBUMIN 3.1 g/dL (3.4-5.0); ALKALINE PHOSPHATASE 74 Units/L (46-116); ASPARTATE AMINO TRANSFERASE 13 Units/L (15-37); BLOOD UREA NITROGEN 13 mg/dL (7-18); CALCIUM 8.8 mg/dL (8.5-10.1); CARBON DIOXIDE 29.1 mmol/L (21-32); CHLORIDE 102 mmol/L (98-107); COR CA(FOR HYPOALB) 9.5 mg/dL (8.5-10.1); CREATININE 0.84 mg/dL (0.70-1.30); SODIUM 138 mmol/L (136-145); TOTAL PROTEIN 7.6 g/dL (6.4-8.2); eGFR NON BLACK RACES > 60 (>60)
[2019-05-23] MEDS: LOVENOX INJ 40 MG SYR SC SCH (09:13)
[2019-05-23] MEDS: ZITHROMAX INJ 500 MG VIAL 500 MG in NS 250 ML IV 250 ML IV SCH (09:14)
[2019-05-23] MEDS: NICOTINE PATCH TD SCH (09:14)
--- NOTE | 2019-05-23 12:21 | PCM.PROG ---
Progress Note - Progress Note for Day of Date of Exam: 05/23/19 - Subjective Subjective: Mr. Liu is a 48-year-old white male who was an ER admission with complaints of shortness of breath. The patient reports that he has a history of chronic obstructive pulmonary disease. He also admits to smoking meth prior to arrival to the ER. The patient had a white count of 18.2 on initial labs in the ER, 14 this am. Pt had not obtained a sputum culture, but increased productive cough and encouraged him to increase oral hydration. On admission we obtained an ABG with a pH of 7.48. His PO2 was 69. PCO2 was normal at 38. His chemistry was normal as far as his chloride and calcium. His renal function was stable. RSV swab, along with a COVID-19, influenza, and mycoplasma ontained on admission with all negative except covid pending. Pt was placed in a negative pressure room with contact/droplet precautions until COVID swab is available. Pt is complaining of upper and lower back pain this am, states it is chronic. - Past Medical Family Social History Past Med/Fam/Surg Hx: No changes since H&P Allergies: Allergies No Known Drug Allergies Allergy (Verified 05/21/19 23:30) - Review of Systems ROS: No change since H&P - Vital Signs and I&O's Vital Signs: Temperature 98.8 F Pulse Rate [Left Brachial] 80 Pulse Rate 86 Respiratory Rate 20 Blood Pressure [Right Arm] 172/74 Blood Pressure [Left Arm] 130/75 Blood Pressure 119/70 O2 Sat by Pulse Oximetry 95 Intake and Output: Intake & Output 05/21/19 05/22/19 05/23/19 05/24/19 11:59 11:59 11:59 11:59 Intake Total 591 / 591 1120 / 1120 Balance 591 / 591 1120 / 1120 - Physical Exam Oriented: Normal Eyes: Normal, Diplopia Nose: Normal Throat: Dry Respiratory: Diminished, Wheezes, Rhonchi Cardiovascular: Normal. negative: Edema : Normal Auscultation: Bowel Sounds: Normal Tenderness: Normal Skin: Decreased Turgur Musculoskeletal: Normal Psychiatric: Normal Mood Description: Calm Speech Pattern: Clear, Appropriate - Laboratory and Diagnostics Result Diagrams: 05/23/19 05:27 05/23/19 05:27 Labs: Laboratory WBC 14.9 X10^3/uL (3.6-10.0) H 05/23/19 05:27 RBC 4.20 X10^6/uL (4.7-6.0) L 05/23/19 05:27 Hgb 12.4 g/dL (13.5-18.0) L 05/23/19 05:27 Hct 37.5 % (42.0-54.0) L 05/23/19 05:27 MCV 89.4 fL (80.0-100.0) 05/23/19 05:27 MCH 29.6 pg (27.0-34.0) 05/23/19 05:27 MCHC 33.1 g/dL (33.0-35.0) 05/23/19 05:27 RDW 17.7 % (11.6-16.5) H 05/23/19 05:27 Plt Count 358 X10^3/uL (150.0-450.0) 05/23/19 05:27 MPV 7.0 fL (7.4-11.0) L 05/23/19 05:27 Neut % (Auto) 79.0 % (42.0-75.0) H 05/23/19 05:27 Lymph % (Auto) 12.3 % (21.0-51.0) L 05/23/19 05:27 [place] % (Auto) 5.2 % (0.0-13.0) 05/23/19 05:27 Eos % (Auto) 2.4 % (0.9-2.9) 05/23/19 05:27 Baso % (Auto) 1.1 % (0.2-1.0) H 05/23/19 05:27 Neut # (Auto) 11.7 x10^3/uL (2.2-4.8) H 05/23/19 05:27 Lymph # (Auto) 1.8 X10^3/uL (1.3-2.9) 05/23/19 05:27 [place] # (Auto) 0.8 x10^3/uL (0.3-0.8) 05/23/19 05:27 Eos # (Auto) 0.4 x10^3/uL (0.0-0.2) H 05/23/19 05:27 Baso # (Auto) 0.2 X10^3/uL (0.0-0.1) H 05/23/19 05:27 Absolute Nucleated RBC 0.0 /100WBC 05/23/19 05:27 Sample Site Rb 05/22/19 09:06 ABG pH 7.480 (7.35-7.45) H 05/22/19 09:06 ABG pCO2 38.0 mmHg (35.0-45.0) 05/22/19 09:06 ABG pO2 69.0 mmHg (80.0-100.0) L 05/22/19 09:06 ABG HCO3 28.3 mmol/L (22-26) H 05/22/19 09:06 ABG O2 Saturation 95.0 % (90-100) 05/22/19 09:06 ABG Base Excess 4.6 mmol/L (-2.0-2.0) H 05/22/19 09:06 Niraj Test Na 05/22/19 09:06 A-a Gradient 33.0 mmHg 05/22/19 09:06 FiO2 21.0 05/22/19 09:06 Blood Gas Comments Agata well cb 05/22/19 09:06 Sodium 138 mmol/L (136-145) 05/23/19 05:27 Corrected Sodium TNP 05/23/19 05:27 Potassium 4.1 mmol/L (3.5-5.1) 05/23/19 05:27 Chloride 102 mmol/L (98-107) 05/23/19 05:27 Carbon Dioxide 29.1 mmol/L (21-32) 05/23/19 05:27 BUN 13 mg/dL (7-18) 05/23/19 05:27 Creatinine 0.84 mg/dL (0.70-1.30) 05/23/19 05:27 Est GFR (MDRD) Af Amer > 60 (>60) 05/23/19 05:27 Est GFR (MDRD) Non-Af > 60 (>60) 05/23/19 05:27 Glucose 110 mg/dL (65-99) H 05/23/19 05:27 Calcium 8.8 mg/dL (8.5-10.1) 05/23/19 05:27 Corrected Calcium 9.5 mg/dL (8.5-10.1) 05/23/19 05:27 Total Bilirubin 0.20 mg/dL (0.2-1.0) 05/23/19 05:27 AST 13 Units/L (15-37) L 05/23/19 05:27 ALT 15 Units/L (12-78) 05/23/19 05:27 Alkaline Phosphatase 74 Units/L (46-116) 05/23/19 05:27 Total Protein 7.6 g/dL (6.4-8.2) 05/23/19 05:27 Albumin 3.1 g/dL (3.4-5.0) L 05/23/19 05:27 Globulin 4.5 g/dL (2.5-4.5) 05/23/19 05:27 Albumin/Globulin Ratio 0.7 Ratio (1.1-2.1) L 05/23/19 05:27 RSV Nasal Swab Negative (NEGATIVE) 05/22/19 10:44 Salicylates 2.9 mg/dL (2.8-20) 05/21/19 19:56 Urine Opiates Screen Negative (NEG=<300) 05/21/19 20:40 Urine Methadone Screen Negative (NEG=<300) 05/21/19 20:40 Acetaminophen 0.0 ug/mL (10-30) L 05/21/19 19:56 Ur Barbiturates Screen Negative (NEG=<200) 05/21/19 20:40 Ur Phencyclidine Scrn Negative (NEG=<25) 05/21/19 20:40 Ur Amphetamines Screen Positive (NEG=<1000) 05/21/19 20:40 U Benzodiazepines Scrn Negative (NEG=<200) 05/21/19 20:40 Urine Cocaine Screen Negative (NEG=<300) 05/21/19 20:40 U Marijuana (THC) Screen Positive (NEG=<50) A 05/21/19 20:40 Ethyl Alcohol mg/dL < 3 mg/dL (0-19.9) 05/21/19 19:56 Influenza Type A (PCR) Negative (NEGATIVE) 05/22/19 10:44 Influenza Type B (PCR) Negative (NEGATIVE) 05/22/19 10:44 Mycoplasma pneumon IgG Negative (NEGATIVE) 05/22/19 09:15 - Plan (1) Shortness of breath Status: Acute Plan: AM LABS, BLOOD AND SPUTUM CULTURE. ABG, SUPPLEMENTAL O2. GENTLE IV HYDRATION, REGULAR DIET, ENCOURAGE ORAL HYDRATION DUO IV ATBX THERAPY. CASE MANAGEMENT CONSULT FOR MENTAL HEALTH REFERRAL ON DISCHARGE (2) COPD exacerbation Status: Acute (3) Methamphetamine abuse Status: Acute (4) Hypertension Status: Acute Plan: monitor, norvasc 5mg po daily
[2019-05-23] MEDS ORDERED: TUSSIONEX PENNKINETIC SUSP ONE (13:26)
[2019-05-23] MEDS: NORVASC TAB 5 MG PO SCH (13:47)
[2019-05-23] MEDS: ROBITUSSIN DM PO PRN (13:48)
[2019-05-23] MEDS: TUSSIONEX PENNKINETIC SUSP PO PRN (13:48)
[2019-05-24 05:38] LABS: ALANINE AMINOTRANSFERASE 15 Units/L (12-78); ALBUMIN 3.3 g/dL (3.4-5.0); ALKALINE PHOSPHATASE 67 Units/L (46-116); ASPARTATE AMINO TRANSFERASE 14 Units/L (15-37); BLOOD UREA NITROGEN 13 mg/dL (7-18); CALCIUM 9.2 mg/dL (8.5-10.1); CARBON DIOXIDE 31.5 mmol/L (21-32); CHLORIDE 99 mmol/L (98-107); COR CA(FOR HYPOALB) 9.8 mg/dL (8.5-10.1); CREATININE 0.96 mg/dL (0.70-1.30); SODIUM 137 mmol/L (136-145); TOTAL PROTEIN 7.8 g/dL (6.4-8.2); eGFR NON BLACK RACES > 60 (>60)
[2019-05-24 05:41] LABS: BASOPHILS # (AUTO) 0.1 X10^3/uL (0.0-0.1); BASOPHILS % (AUTO) 0.9 % (0.2-1.0); EOSINOPHILS # (AUTO) 0.5 x10^3/uL (0.0-0.2); EOSINOPHILS % (AUTO) 5.8 % (0.9-2.9); HEMATOCRIT 38.7 % (42.0-54.0); HEMOGLOBIN 13.1 g/dL (13.5-18.0); LYMPHOCYTES # (AUTO) 1.6 X10^3/uL (1.3-2.9); LYMPHOCYTES % (AUTO) 19.9 % (21.0-51.0); MEAN CORPUSCULAR HEMOGLOBIN 29.7 pg (27.0-34.0); MEAN CORPUSCULAR VOLUME 87.5 fL (80.0-100.0); MEAN PLATELET VOLUME 6.8 fL (7.4-11.0); MONOCYTES # (AUTO) 0.6 x10^3/uL (0.3-0.8); NEUTROPHILS # (AUTO) 5.4 x10^3/uL (2.2-4.8); NEUTROPHILS % (AUTO) 66.4 % (42.0-75.0); PLATELET COUNT 411 X10^3/uL (150.0-450.0); RED BLOOD COUNT 4.42 X10^6/uL (4.7-6.0); RED CELL DISTRIBUTION WIDTH 17.3 % (11.6-16.5); WHITE BLOOD COUNT 8.1 X10^3/uL (3.6-10.0)
[2019-05-24] MEDS: LOVENOX INJ 40 MG SYR SC SCH (09:35)
[2019-05-24] MEDS: ZITHROMAX INJ 500 MG VIAL 500 MG in NS 250 ML IV 250 ML IV SCH (09:36)
[2019-05-24] MEDS: NORVASC TAB 5 MG PO SCH (09:36)
[2019-05-24] MEDS: NICOTINE PATCH TD SCH (09:37)
[2019-05-24] MEDS: TUSSIONEX PENNKINETIC SUSP PO PRN (09:38)
[2019-05-24] MEDS: ROBITUSSIN DM PO PRN ×2 (09:38→21:10)
[2019-05-24] MEDS: VIBRAMYCIN PO SCH ×2 (18:06→21:09)
[2019-05-25 05:07] LABS: BASOPHILS # (AUTO) 0.3 X10^3/uL (0.0-0.1); BASOPHILS % (AUTO) 4.3 % (0.2-1.0); EOSINOPHILS # (AUTO) 0.4 x10^3/uL (0.0-0.2); EOSINOPHILS % (AUTO) 6.8 % (0.9-2.9); HEMATOCRIT 41.2 % (42.0-54.0); HEMOGLOBIN 13.8 g/dL (13.5-18.0); LYMPHOCYTES # (AUTO) 1.5 X10^3/uL (1.3-2.9); LYMPHOCYTES % (AUTO) 22.8 % (21.0-51.0); MEAN CORPUSCULAR HEMOGLOBIN 29.4 pg (27.0-34.0); MEAN CORPUSCULAR HGB CONC 33.6 g/dL (33.0-35.0); MEAN CORPUSCULAR VOLUME 87.3 fL (80.0-100.0); MEAN PLATELET VOLUME 6.6 fL (7.4-11.0); MONOCYTES # (AUTO) 0.4 x10^3/uL (0.3-0.8); NEUTROPHILS % (AUTO) 60.1 % (42.0-75.0); PLATELET COUNT 442 X10^3/uL (150.0-450.0); RED BLOOD COUNT 4.71 X10^6/uL (4.7-6.0); RED CELL DISTRIBUTION WIDTH 17.2 % (11.6-16.5); WHITE BLOOD COUNT 6.6 X10^3/uL (3.6-10.0)
[2019-05-25 05:16] LABS: ALANINE AMINOTRANSFERASE 19 Units/L (12-78); ALBUMIN 3.3 g/dL (3.4-5.0); ALKALINE PHOSPHATASE 69 Units/L (46-116); ASPARTATE AMINO TRANSFERASE 16 Units/L (15-37); BLOOD UREA NITROGEN 17 mg/dL (7-18); CALCIUM 9.2 mg/dL (8.5-10.1); CARBON DIOXIDE 31.5 mmol/L (21-32); CHLORIDE 99 mmol/L (98-107); COR CA(FOR HYPOALB) 9.8 mg/dL (8.5-10.1); CREATININE 1.04 mg/dL (0.70-1.30); SODIUM 137 mmol/L (136-145); TOTAL PROTEIN 7.9 g/dL (6.4-8.2); eGFR NON BLACK RACES > 60 (>60)
[2019-05-25] MEDS: NICOTINE PATCH TD SCH (09:43)
[2019-05-25] MEDS: NORVASC TAB 5 MG PO SCH (09:44)
[2019-05-25] MEDS: VIBRAMYCIN PO SCH (09:44)
[2019-05-25] MEDS: LOVENOX INJ 40 MG SYR SC SCH (09:46)
[2019-05-25] MEDS ORDERED: ZITHROMAX INJ 500 MG VIAL IV ONE (09:51)
[2019-05-25] MEDS: ZITHROMAX INJ 500 MG VIAL 500 MG in NS 250 ML IV 250 ML IV SCH (10:26)
[2019-05-25 12:18] VITALS: BP 118/88
--- NOTE | 2019-06-29 12:37 | PCM.PROG ---
Progress Note - Progress Note for Day of Date of Exam: 05/24/19 - Subjective Subjective: Mr. Liu is a 48-year-old white male who was an ER admission with complaints of shortness of breath. The patient reports that he has a history of chronic obstructive pulmonary disease. He also admits to smoking meth prior to arrival to the ER. The patient had a white count of 18K on initial labs in the ER, 8.1 this am. Pt had not obtained a sputum culture, but increased productive cough and encouraged him to increase oral hydration. On admission we obtained an ABG with a pH of 7.48. His PO2 was 69. PCO2 was normal at 38. His chemistry was normal as far as his chloride and calcium. His renal function was stable. RSV swab, along with a COVID-19, influenza, and mycoplasma ontained on admission with all negative except covid pending. Pt was placed in a negative pressure room with contact/droplet precautions until COVID swab is available. Pt is complaining of upper and lower back pain this am, states it is chronic. - Past Medical Family Social History Past Med/Fam/Surg Hx: No changes since H&P Allergies: Allergies No Known Drug Allergies Allergy (Verified 05/21/19 23:30) - Review of Systems ROS: No change since H&P - Vital Signs and I&O's Vital Signs: Temperature 97.7 F Pulse Rate [Left Brachial] 81 Pulse Rate 86 Respiratory Rate 20 Blood Pressure [Right Arm] 129/91 Blood Pressure [Left Arm] 118/88 Blood Pressure 119/70 O2 Sat by Pulse Oximetry 98 - Physical Exam Oriented: Normal Eyes: Normal, Diplopia Nose: Normal Throat: Dry Respiratory: Diminished, Wheezes, Rhonchi Cardiovascular: Normal. negative: Edema : Normal Auscultation: Bowel Sounds: Normal Tenderness: Normal Skin: Decreased Turgur Musculoskeletal: Normal Psychiatric: Normal Mood Description: Calm Speech Pattern: Clear, Appropriate - Laboratory and Diagnostics Result Diagrams: 05/25/19 04:40 05/25/19 04:40 Labs: 05/22/19 09:15 Blood Blood Culture - Final 05/22/19 09:00 Blood Blood Culture - Final Laboratory WBC 6.6 X10^3/uL (3.6-10.0) 05/25/19 04:40 RBC 4.71 X10^6/uL (4.7-6.0) 05/25/19 04:40 Hgb 13.8 g/dL (13.5-18.0) 05/25/19 04:40 Hct 41.2 % (42.0-54.0) L 05/25/19 04:40 MCV 87.3 fL (80.0-100.0) 05/25/19 04:40 MCH 29.4 pg (27.0-34.0) 05/25/19 04:40 MCHC 33.6 g/dL (33.0-35.0) 05/25/19 04:40 RDW 17.2 % (11.6-16.5) H 05/25/19 04:40 Plt Count 442 X10^3/uL (150.0-450.0) 05/25/19 04:40 MPV 6.6 fL (7.4-11.0) L 05/25/19 04:40 Neut % (Auto) 60.1 % (42.0-75.0) 05/25/19 04:40 Lymph % (Auto) 22.8 % (21.0-51.0) 05/25/19 04:40 [place] % (Auto) 6.0 % (0.0-13.0) 05/25/19 04:40 Eos % (Auto) 6.8 % (0.9-2.9) H 05/25/19 04:40 Baso % (Auto) 4.3 % (0.2-1.0) H 05/25/19 04:40 Neut # (Auto) 4.0 x10^3/uL (2.2-4.8) 05/25/19 04:40 Lymph # (Auto) 1.5 X10^3/uL (1.3-2.9) 05/25/19 04:40 [place] # (Auto) 0.4 x10^3/uL (0.3-0.8) 05/25/19 04:40 Eos # (Auto) 0.4 x10^3/uL (0.0-0.2) H 05/25/19 04:40 Baso # (Auto) 0.3 X10^3/uL (0.0-0.1) H 05/25/19 04:40 Absolute Nucleated RBC 0.1 /100WBC 05/25/19 04:40 Sample Site Rb 05/22/19 09:06 ABG pH 7.480 (7.35-7.45) H 05/22/19 09:06 ABG pCO2 38.0 mmHg (35.0-45.0) 05/22/19 09:06 ABG pO2 69.0 mmHg (80.0-100.0) L 05/22/19 09:06 ABG HCO3 28.3 mmol/L (22-26) H 05/22/19 09:06 ABG O2 Saturation 95.0 % (90-100) 05/22/19 09:06 ABG Base Excess 4.6 mmol/L (-2.0-2.0) H 05/22/19 09:06 Niraj Test Na 05/22/19 09:06 A-a Gradient 33.0 mmHg 05/22/19 09:06 FiO2 21.0 05/22/19 09:06 Blood Gas Comments Agata well cb 05/22/19 09:06 Sodium 137 mmol/L (136-145) 05/25/19 04:40 Corrected Sodium TNP 05/25/19 04:40 Potassium 4.7 mmol/L (3.5-5.1) 05/25/19 04:40 Chloride 99 mmol/L (98-107) 05/25/19 04:40 Carbon Dioxide 31.5 mmol/L (21-32) 05/25/19 04:40 BUN 17 mg/dL (7-18) 05/25/19 04:40 Creatinine 1.04 mg/dL (0.70-1.30) 05/25/19 04:40 Est GFR (MDRD) Af Amer > 60 (>60) 05/25/19 04:40 Est GFR (MDRD) Non-Af > 60 (>60) 05/25/19 04:40 Glucose 96 mg/dL (65-99) 05/25/19 04:40 Calcium 9.2 mg/dL (8.5-10.1) 05/25/19 04:40 Corrected Calcium 9.8 mg/dL (8.5-10.1) 05/25/19 04:40 Total Bilirubin 0.10 mg/dL (0.2-1.0) L 05/25/19 04:40 AST 16 Units/L (15-37) 05/25/19 04:40 ALT 19 Units/L (12-78) 05/25/19 04:40 Alkaline Phosphatase 69 Units/L (46-116) 05/25/19 04:40 Total Protein 7.9 g/dL (6.4-8.2) 05/25/19 04:40 Albumin 3.3 g/dL (3.4-5.0) L 05/25/19 04:40 Globulin 4.6 g/dL (2.5-4.5) H 05/25/19 04:40 Albumin/Globulin Ratio 0.7 Ratio (1.1-2.1) L 05/25/19 04:40 RSV Nasal Swab Negative (NEGATIVE) 05/22/19 10:44 Salicylates 2.9 mg/dL (2.8-20) 05/21/19 19:56 Urine Opiates Screen Negative (NEG=<300) 05/21/19 20:40 Urine Methadone Screen Negative (NEG=<300) 05/21/19 20:40 Acetaminophen 0.0 ug/mL (10-30) L 05/21/19 19:56 Ur Barbiturates Screen Negative (NEG=<200) 05/21/19 20:40 Ur Phencyclidine Scrn Negative (NEG=<25) 05/21/19 20:40 Ur Amphetamines Screen Positive (NEG=<1000) 05/21/19 20:40 U Benzodiazepines Scrn Negative (NEG=<200) 05/21/19 20:40 Urine Cocaine Screen Negative (NEG=<300) 05/21/19 20:40 U Marijuana (THC) Screen Positive (NEG=<50) A 05/21/19 20:40 Ethyl Alcohol mg/dL < 3 mg/dL (0-19.9) 05/21/19 19:56 Influenza Type A (PCR) Negative (NEGATIVE) 05/22/19 10:44 Influenza Type B (PCR) Negative (NEGATIVE) 05/22/19 10:44 Mycoplasma pneumon IgG Negative (NEGATIVE) 05/22/19 09:15 Miscellaneous Test Covid-19 05/22/19 10:44 - Plan (1) Shortness of breath Status: Inactive Plan: AM LABS, BLOOD AND SPUTUM CULTURE. ABG, SUPPLEMENTAL O2. GENTLE IV HYDRATION, REGULAR DIET, ENCOURAGE ORAL HYDRATION DUO IV ATBX THERAPY. CASE MANAGEMENT CONSULT FOR MENTAL HEALTH REFERRAL ON DISCHARGE (2) COPD exacerbation Status: Acute (3) Methamphetamine abuse Status: Acute (4) Hypertension Status: Acute Plan: monitor, norvasc 5mg po daily
== END 2019-05-25 12:10 | disposition home or self-care (01) | DRG 192 ==
LOC: ER 19:21 → MED/SURG 21:50
PROVIDERS: ADMIT Internal Medicine; ATTEND Internal Medicine
DX: J20.2 Acute bronchitis due to streptococcus; J44.1 Chronic obstructive pulmonary disease with (acute) exacerbation; R94.31 Abnormal electrocardiogram [ECG] [EKG]; F15.10 Other stimulant abuse, uncomplicated; F41.8 Other specified anxiety disorders; Z03.818 Encounter for observation for suspected exposure to other biological agents ruled out; Z23 Encounter for immunization; J20.8 Acute bronchitis due to other specified organisms; I10 Essential (primary) hypertension; J20.1 Acute bronchitis due to Hemophilus influenzae